=== PATIENT | female | born 1985 | race Caucasian/White ===

== ENCOUNTER 2019-05-11 14:30 | Emergency (ER) | payer MEDICAID, OTHER ==
[2019-05-11 14:44] VITALS: RESP 18
[2019-05-11 15:18] LABS: Amorphous Sediment,Urine Occasional /hpf; Appearance,Urine Cloudy (Clear); Bilirubin,Urine Negative (Negative); Blood,Urine Negative (Negative); Color,Urine Yellow; Glucose,Urine (UA) Negative (Negative); Ketones,Urine Trace (Negative); Leukocyte Esterase,Urine Small (Negative); Mucus,Urine Few /hpf; Nitrite,Urine Negative (Negative); Protein,Urine Negative (Negative); RBC,Urine 4 /hpf (0-5); Specific Gravity,Urine 1.024 (1.001-1.035); Squamous Epithelial Cell,Urine 2 /hpf (0-4); Urobilinogen,Urine <2.0 mg/dL (<2.0)
--- NOTE | 2019-05-11 15:54 | ED ---
Abdominal Pain HPI - General Chief Complaint: Abdominal Pain Stated Complaint: Abd Pain Time Seen by Provider: 05/11/19 14:47 Source: patient, RN notes reviewed, old records reviewed Mode of arrival: ambulatory Limitations: no limitations - History of Present Illness Initial Comments: Patient is a pleasant 33-year-old female. She presents emergency department today for lower abdominal pain, vaginal discharge for the past 2 days. Patient states that it seems painful with certain walking certain ways. Patient states that she's had no nausea or vomiting. Patient has had no fevers or chills. She states that she questioned if she could've a constant during this time. Patient states that she had a surgical approximately 6 weeks ago. She states she's had a menstrual period since that time. Her last [facility]. Was 2 weeks ago. Patient states that she did have unprotected intercourse approximately one week ago and is concern for sexual transmitted infections. - Related Data Previous Rx's Medication Instructions Recorded metroNIDAZOLE [Flagyl] 500 mg PO BID #14 tab 08/03/14 Allergies Allergy/AdvReac Type Severity Reaction Status Date / Time No Known Allergies Allergy Verified 05/11/19 14:41 Review of Systems ROS Statement: Those systems with pertinent positive or pertinent negative responses have been documented in the HPI. ROS Other: All systems not noted in ROS Statement are negative. Past Medical History Past Medical History: No Reported History History of Any Multi-Drug Resistant Organisms: None Reported Past Surgical History: No Surgical Hx Reported Past Psychological History: No Psychological Hx Reported Smoking Status: Former smoker Past Alcohol Use History: None Reported, Occasional Past Drug Use History: None Reported General Exam Limitations: no limitations General appearance: alert, in no apparent distress Head exam: Present: atraumatic, normocephalic, normal inspection Eye exam: Present: normal appearance, PERRL, EOMI. Absent: scleral icterus, conjunctival injection, periorbital swelling ENT exam: Present: normal exam, mucous membranes moist Neck exam: Present: normal inspection. Absent: tenderness, meningismus, lymphadenopathy Respiratory exam: Present: normal lung sounds bilaterally. Absent: respiratory distress, wheezes, rales, rhonchi, stridor Cardiovascular Exam: Present: regular rate, normal rhythm, normal heart sounds. Absent: systolic murmur, diastolic murmur, rubs, gallop, clicks GI/Abdominal exam: Present: soft, tenderness (Suprapubic tenderness.), normal bowel sounds. Absent: distended, guarding, rebound, rigid External exam: Present: normal external exam Speculum exam: Present: normal speculum exam, vaginal discharge By manual exam: Present: normal by manual exam Extremities exam: Present: normal inspection, full ROM, normal capillary refill. Absent: tenderness, pedal edema, joint swelling, calf tenderness Back exam: Present: normal inspection Neurological exam: Present: alert, oriented X3, CN II-XII intact Course Vital Signs 05/11/19 14:41 Temperature 97.9 F Pulse Rate 79 Respiratory 18 Rate Blood Pressure 114/77 O2 Sat by Pulse 97 Oximetry Medical Decision Making - Medical Decision Making Patient is a 33-year-old female with lower abdominal pain and cramping. She states it started last night into today. Patient has had no fever. No vomiting. Patient was concerned because she did have a D&C approximately 6 weeks ago. She does have some suprapubic abdominal pain. Pelvic exam was completed did show white discharge. She does report concern for STI's and we'll treat the Patient this time for chlamydia and gonorrhea testing until this comes back with Rocephin and azithromycin and Flagyl. Her Trichomonas test was negative. Urinalysis is negative for or infection. Patient did have a transvaginal ultrasound which showed bilateral ovarian cysts. Discussed that could likely be the source of patient's pain at this time. I discussed the Patient needs to follow-up with [facility]. Discussed return parameters. All questions were answered. - Lab Data Lab Results 05/11/19 05/11/19 05/11/19 Range/Units 15:00 15:00 16:00 Urine Color Yellow Urine Appearance Cloudy H (Clear) Urine pH 7.0 (5.0-8.0) Ur Specific [place] 1.024 (1.001-1.035) Urine Protein Negative (Negative) Urine Glucose (UA) Negative (Negative) Urine Ketones Trace H (Negative) Urine Blood Negative (Negative) Urine Nitrite Negative (Negative) Urine Bilirubin Negative (Negative) Urine Urobilinogen <2.0 (<2.0) mg/dL Ur Leukocyte Esterase Small H (Negative) Urine RBC 4 (0-5) /hpf Urine WBC 1 (0-5) /hpf Ur Squamous Epith Cells 2 (0-4) /hpf Amorphous Sediment Occasional H (None) /hpf Urine Mucus Few H (None) /hpf Urine HCG, Qual Not Detected (Not Detectd) Trichomonas Ag (Rapid) Negative (Negative) Disposition Clinical Impression: Ovarian cyst, Vaginal discharge Disposition: HOME SELF-CARE Condition: Good Instructions (If sedation given, give patient instructions): Ruptured Ovarian Cyst (ED) Additional Instructions: Patient advised to follow-up with your [facility] REP. Return to the emergency department if any alarming signs symptoms occur. Monitor for any worsening symptoms including fever or nausea or vomiting. Patient to take a starter packs her pain medicine as prescribed. Is patient prescribed a controlled substance at d/c from ED?: No Referrals: None,Stated [Primary Care Provider] - 1-2 days Anna Quijano DO [Doctor of Osteopathic Medicine] - 1-2 days Time of Disposition: 17:03
[2019-05-11] MEDS ORDERED: metroNIDAZOLE 500 MG TAB PO STA (15:55)
[2019-05-11] MEDS ORDERED: AZITHROMYCIN 500 MG TAB PO STA (15:55)
[2019-05-11] MEDS ORDERED: cefTRIAXone 250 MG VIAL IM STA (15:55)
--- NOTE | 2019-05-11 16:34 | US ---
EXAMINATION TYPE: US transvaginal DATE OF EXAM: 05/11/2019 COMPARISON: NONE CLINICAL HISTORY: ov cyst, vs toa. Pelvic pressure/pain for 1 day. 6 weeks ago at 12 weeks g estation TECHNIQUE: Transvaginal (TV). Date of LMP: 04/27/19 EXAM MEASUREMENTS: Uterus: 7.0 x 4.6 x 6.4 cm Endometrial Stripe: 0.5 cm Right Ovary: 3.5 x 2.0 x 3.7 cm Left Ovary: 2.9 x 2.0 x 2.0 cm 1. Uterus: Retroverted hypoechoic area left uterus = 0.9 x 0.8 x 0.8cm 2. Endometrium: appears wnl 3. Right Ovary: 2 complex areas noted = 1.5 x 2.0 x 2.2cm and 1.5 x 1.8 x 1.7cm 4. Left Ovary: follicles noted Spectral, color and waveform doppler imaging shows good arterial and venous flow within the ovaries . 5. Bilateral Adnexa: appears wnl 6. Posterior cul-de-sac: wnl Heterogeneous retroverted uterus. Oval 9 mm hypoechoic area left uterine fundus could reflect small f ibroid. No free fluid in pelvic cul-de-sac. IMPRESSION: 2 nonsimple cysts approaching 2 cm within the right ovary favor small hemorrhagic cysts. Consider ultrasound follow-up in 6 weeks' time to reassess.
--- NOTE | 2019-05-11 16:51 | XR ---
EXAMINATION TYPE: XR KUB DATE OF EXAM: 05/11/2019 COMPARISON: NONE HISTORY: Abdominal pain TECHNIQUE: 2 views upright FINDINGS: There is no sign of intestinal obstruction or pneumoperitoneum. Fecal pattern is normal. Th ere are no pathologic calcifications. IMPRESSION: Nonacute abdomen.
[2019-05-11 17:03] VITALS: BP 132/91; PULSE 72
[2019-05-11] MEDS ORDERED: traMADol 50 MG STARTER PACK 3 TAB BTL PO STA (17:03)
[2019-05-11] MEDS ORDERED: IBUPROFEN 600 MG STARTER PACK 4 TAB BTL PO STA (17:03)
[2019-05-11 17:11] VITALS: TEMP 98.1
[2019-05-13 15:57] LABS: N. gonorrhoeae,PCR Negative (Neg,Equiv); Neisseria Source Vagina
[2019-05-13 15:58] LABS: C. trachomatis,PCR Negative (Neg,Equiv); Chlamydia trachomatis Source Vagina
== END 2019-05-11 17:10 | disposition home or self-care (01) ==
LOC: EC 14:30
DX: N83.202 Unspecified ovarian cyst, left side (principal); N83.201 Unspecified ovarian cyst, right side; N89.8 Other specified noninflammatory disorders of vagina; Z87.891 Personal history of nicotine dependence; Z98.890 Other specified postprocedural states
CPT/HCPCS: 81001; 81025; 87808; 87491; 87591; 87070; 74018; 93975; 76830; 99285; 96372; J0696